=== PATIENT | male | born 1975 | race Caucasian/White ===

== ENCOUNTER → 2017-11-19 | Outpatient (CLI) | payer OTHER ==
[~2017-11-19] MED LIST: ANDRODERM PATCH; CATHETER FLUSH 10 ML SYR IV PRN; DAPS100T3 PO; DOXY-233 PO; HYDR-3583 PO; IOHEXOL 350 MG/ML 100 ML (OMNIPAQUE 350) VIAL IV ONE; LVT.15T PO; NS 250 ML (IVPB) BAG IV ONE; OMEP40CA36 PO; RECEIVED CONTRAST (Hold Metformin) IV SCH
[2017-11-19 16:19] LABS: BASOPHILS % (AUTO) 0 % (0-10); EOSINOPHILS # (AUTO) 0.2 10^3/uL (0.0-0.3); EOSINOPHILS % (AUTO) 3 % (0-10); HEMATOCRIT 46 % (40-54); HEMOGLOBIN 15.7 G/DL (13.3-17.7); LYMPHOCYTES # (AUTO) 1.9 X 10^3 (1.0-4.0); LYMPHOCYTES % (AUTO) 26 % (12-44); MEAN CORPUSCULAR HEMOGLOBIN 31 PG (25-34); MEAN CORPUSCULAR HGB CONC 34 G/DL (32-36); MEAN CORPUSCULAR VOLUME 89 FL (80-99); MEAN PLATELET VOLUME 9.7 FL (7.4-10.4); MONOCYTES # (AUTO) 0.5 X 10^3 (0.0-1.0); MONOCYTES % (AUTO) 7 % (0-12); NEUTROPHILS # (AUTO) 4.6 X 10^3 (1.8-7.8); NEUTROPHILS % (AUTO) 64 % (42-75); PLATELET COUNT 365 10^3/uL (130-400); RED BLOOD COUNT 5.15 10^6/uL (4.35-5.85); RED CELL DISTRIBUTION WIDTH 13.2 % (10.0-14.5); WHITE BLOOD COUNT 7.2 10^3/uL (4.3-11.0)
[2017-11-19 16:42] LABS: ALANINE AMINOTRANSFERASE 27 U/L (0-55); ALBUMIN 4.3 GM/DL (3.2-4.5); ALKALINE PHOSPHATASE 34 U/L (40-136); BILIRUBIN,TOTAL 0.5 MG/DL (0.1-1.0); BUN/CREATININE RATIO 11; CALCIUM 9.5 MG/DL (8.5-10.1); CARBON DIOXIDE 27 MMOL/L (21-32); CHLORIDE 97 MMOL/L (98-107); CREATININE SERUM 1.01 MG/DL (0.60-1.30); GFR ESTIMATED > 60; GLUCOSE 171 MG/DL (70-105); POTASSIUM 3.8 MMOL/L (3.6-5.0); SODIUM 134 MMOL/L (135-145)
--- NOTE | 2017-11-19 17:16 | Diagnostic Imaging Report ---
PROCEDURE: CT neck soft tissue with contrast. TECHNIQUE: Multiple contiguous axial images were obtained through the neck after the administration of contrast. INDICATION: Painful soft tissue lump. COMPARISON: No comparison available. FINDINGS: There is abnormal soft tissue induration and skin thickening demonstrated along the inferior aspect of the mandible, greater on the right. Deep to the marker placed at the site of the patient's palpable abnormality is more focal induration and phlegmon but no definable fluid or a well-encapsulated abscess. There is some reactive thickening demonstrated of the platysma. There are no findings to suggest involvement of the deep neck spaces. There is no evidence of involvement deep to the platysma. The visualized intracranial contents appear unremarkable without evidence of abnormal enhancement or mass effect. The mastoids appear clear. The visualized portions of the paranasal sinuses are clear. The posterior nasopharynx and oropharynx appear appropriately symmetric. There is no abnormal process within the prevertebral or retropharyngeal space. There is no displacement of the parapharyngeal fat planes. There is no abnormal thickening of the epiglottis. There appear to be some secretions in the left vallecula. The vocal folds appear symmetric. There are small calcified thyroid nodules. The parotid and submandibular glands appear unremarkable. There are minimally prominent submandibular lymph nodes which are on a presumed reactive basis. There are no pathologically enlarged lymph nodes evident. The vascular structures of the neck are not well evaluated due to contrast timing. Lung apices appear clear. Cervical spine demonstrates multilevel degenerative endplate changes and facet arthropathy but no acute or suspicious osseous abnormality. Alignment appears normal. IMPRESSION: 1. Abnormal induration within the subcutaneous fat with skin thickening overlying the inferior aspect of the apex of the mandible, greater on the right. There is more focal phlegmon demonstrated deep to the marker placed at the site of the patient's palpable abnormality, but there is no definable mass or focal encapsulated fluid collection or drainable abscess. 2. Minimally prominent and presumed reactive submandibular lymph nodes. 3. The aerodigestive tract appears appropriately symmetric. Dictated by: Dictated on workstation # [id number]
== END ==
LOC: RAD 15:51
PROVIDERS: ATTEND Surgery
DX: R22.1 Localized swelling, mass and lump, neck (principal); R53.83 Other fatigue
CPT/HCPCS: 36415; 70491; 80053; 85025

== ENCOUNTER → 2017-11-23 | Outpatient (CLI) | payer OTHER ==
[~2017-11-23] MED LIST changes: -CATHETER FLUSH 10 ML SYR IV PRN; -IOHEXOL 350 MG/ML 100 ML (OMNIPAQUE 350) VIAL IV ONE; -NS 250 ML (IVPB) BAG IV ONE; -RECEIVED CONTRAST (Hold Metformin) IV SCH
--- NOTE | 2017-11-23 11:59 | Diagnostic Imaging Report ---
PROCEDURE: US Thyroid. TECHNIQUE: Multiple real-time grayscale images were obtained of the thyroid in various projections. INDICATION: Thyroid nodules. FINDINGS: The right lobe of the thyroid measures 4.0 x 2.0 x 1.5 cm and the left lobe measures 3.5 x 1.5 x 1.4 cm. There are bilateral thyroid nodules. The largest nodule is on the right approximately 8 mm in size, nodules on the left are approximately 4-6 mm. Nodules contain macrocalcifications. No microcalcifications are seen. IMPRESSION: Subcentimeter thyroid nodules consistent with multinodular goiter. No dominant thyroid mass is detected. Dictated by: Dictated on workstation # [id number]
== END ==
LOC: RAD 10:35
PROVIDERS: ATTEND Surgery
DX: E04.2 Nontoxic multinodular goiter (principal); R93.8 Abnormal findings on diagnostic imaging of other specified body structures
CPT/HCPCS: 36415; 76536; 84436; 84443

== ENCOUNTER → 2018-09-29 | Outpatient (CLI) | payer OTHER | LOC: RT 13:33 | PROVIDERS: ATTEND Family Medicine | DX: R06.00 Dyspnea, unspecified (principal) | CPT/HCPCS: 94060; 94726; 94729 ==